=== PATIENT | male | born 1985 | race Hispanic/Latino ===

== ENCOUNTER 2024-08-20 02:26 | Emergency (ER) | payer BC ==
[~2024-08-20] VITALS: Ht 180.3 cm; Wt 103.1 kg
--- NOTE | 2024-08-20 02:30 | ERN ---
ED Note History of Present Illness Stated Complaint: HEAD PRESSURE, ELEVATED BLOOD GLUCOSE,BLURRY Chief Complaint: Multiple Complaints Time Seen by MD: 02:30 Dictation: Middle-aged 38-year-old male comes in today. Says last few days that is some headache. And also some elevated sugar. I said this then made sure has vision blurry. But no loss of vision no current and pulling. 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 then has not taken medications for diabetes Allergies: Coded Allergies: No Known Drug Allergies (Unverified Allergy, Unknown, 08/20/24) Review of System Dictation Constitutional: Negative for fever,chills, and weight loss Eyes: Negative for injury, pain,redness, and discharge ENT: Negative for injury,pain or swelling Cardiovascular: Negative for chest pain, palpitations, and edema Respiratory: Negative for shortness of breath, cough, and wheezing, Abdomen/GI: Negative for abdominal pain, nausea, vomiting, diarrhea, and constipation Back: Negative for injury and pain : Negative for injury, bleeding and discharge MS/Extremity: Negative for injury and deformity Skin: Negative for rash, and discoloration Neuro: Headache Psych: Negative for suicide ideation, homicidal ideation, and hallucinations Initial Vital Sign VS Vital Signs Date Time Temp Pulse Resp B/P (MAP) Pulse Ox O2 Delivery O2 Flow Rate FiO2 08/20/24 02:27 97.9 75 18 120/68 96 Room Air 0 08/20/24 04:20 21 Physical Exam Dictation General: awake, alert, NAD Head/Face: Normocephalic, atraumatic Eyes: PERRL, EOMI, vision at baseline ENT: oral cavity clear, TMs clear, no signs of infection Neck: Trachea midline, supple, no nuchal rigidity Cardiovascular: RRR, normal S1/S2, No MRGs, no JVD Respiratory: CTAB, no respiratory distress, No rales or wheezes Abdomen: Soft, non-tender, non-distended, normal bowel sounds, no guarding or rebound. Skin: Warm, dry, normal turgor, no rash MS/Extremity: Pulses equal, no cyanosis, neurovascular intact, FROM Neuro: COAx4, GCS 15, strength 5/5, CN 2-12 intact, normal cerebellar exam, normal gait, Psych: Normal behavior, mood, and affect normal No acute distress nontoxic appearing he is able to ambulate and walk into the room without difficulties NIH of 0 cerebellar testing within normal limits no gait or balance disorder Results (Laboratory/Radiology) Laboratory/Radiology Laboratory Tests Test 08/20/24 04:13 08/20/24 04:16 08/20/24 04:18 Whole Blood Glucose 67 MG/DL (70-110) L 90 MG/DL (70-110) White Blood Count 8.3 K/uL (4.8-10.8) Red Blood Count 4.57 MIL/uL (4.50-6.20) Hemoglobin 13.9 g/dL (14.0-18.0) L Hematocrit 41.6 % (42-54) L Mean Corpuscular Volume 91.0 fL (79-99) Mean Corpuscular Hemoglobin 30.4 pg (27.0-33.0) Mean Corpuscular Hemoglobin Concent 33.4 g/dL (32.0-36.0) Red Cell Distribution Width 12.8 % (11.0-15.5) Platelet Count 221 K/uL (130-400) Mean Platelet Volume 9.9 fL (7.5-10.5) Immature Granulocyte % (Auto) 0.1 % (0-1) Neutrophils (%) (Auto) 41.2 % (40.0-77.0) Lymphocytes (%) (Auto) 43.2 % (21.0-51.0) Monocytes (%) (Auto) 10.4 % (3.0-13.0) Eosinophils (%) (Auto) 4.7 % (0.0-8.0) Basophils (%) (Auto) 0.4 % (0.0-5.0) Neutrophils # (Auto) 3.4 K/uL (1.8-7.7) Lymphocytes # (Auto) 3.6 K/uL (1.0-4.8) Monocytes # (Auto) 0.9 K/uL (0.1-1.0) Eosinophils # (Auto) 0.39 K/uL (0.00-0.70) Basophils # (Auto) 0.03 K/uL (0.00-0.20) Absolute Immature Granulocyte (auto 0.01 K/uL (0-1) Nucleated Red Blood Cells 0.0 % (0.0-0.19) Sodium Level 139 mmol/L (136-145) Potassium Level 4.4 mmol/L (3.5-5.1) Chloride Level 102 mmol/L (101-111) Carbon Dioxide Level 34 mmol/L (21-32) H Blood Urea Nitrogen 13 mg/dL (7-18) Creatinine 0.9 mg/dL (0.5-1.3) Glomerular Filtration Rate Calc 113 mL/min (>90) Random Glucose 76 mg/dL (70-105) Total Calcium 8.8 mg/dL (8.5-10.1) Total Bilirubin 0.4 mg/dL (0.2-1.0) Aspartate Amino Transf (AST/SGOT) 38 U/L (10-37) H Alanine Aminotransferase (ALT/SGPT) 64 U/L (12-78) Alkaline Phosphatase 62 U/L (50-136) Total Protein 8.0 g/dL (6.0-8.3) Albumin 3.7 g/dL (3.5-5.0) ED Course ED Course Orders Procedure Category Date Status Time Blood Sugars Achs CPOE 08/20/24 Transmitted 02:38 Lipid Panel LAB 08/21/24 Verified 04:00 Blood Sugars Achs CPOE 08/20/24 Transmitted 02:38 Insulin Humulin 70/30 PHA 08/20/24 Complete 3 Ml (Humulin 70-3 16:30 0.9%Nacl 1000ml (Ns PHA 08/20/24 Complete 1000ml) 03:00 Comprehensive LAB 08/20/24 Complete Metabolic Panel 02:38 Chest 1vw RAD 08/20/24 Taken 02:41 Ondansetron 4mg Inj PHA 08/20/24 Complete (Zofran 4mg Inj) 03:00 Cbc With Differential LAB 08/20/24 Complete 02:38 Current Medications Medications (Trade) Dose Ordered Sig/Jasiel Route PRN Reason Start Time Stop Time Status Last Admin Dose Admin Insulin Human Isoph/Insulin Regular (humuLIN 70-30 VIAL) 10 unit ACDINNER SQ 08/20/24 16:30 08/20/24 04:17 DC Ondansetron HCl (zoFRAN 4MG INJ) 4 mg ONCE ONCE IVP 08/20/24 03:00 08/20/24 03:01 DC Sodium Chloride 1,000 ml @ 0 mls/hr ONCE ONCE IV 08/20/24 03:00 08/20/24 04:17 DC Vital Signs Date Time Temp Pulse Resp B/P (MAP) Pulse Ox O2 Delivery O2 Flow Rate FiO2 08/20/24 04:20 97.5 74 18 124/76 100 Room Air* 0 21 08/20/24 02:27 97.9 75 18 120/68 96 Room Air 0 Medical Decision Making MDM Likely headache and dehydration from elevation sugar. We will make sure he is not DKA. No need to scan the head. No neurological deficits she has normal sugar and normal labs test. Stable for outpatient management migraine DX & DISP Disposition: Discharge Departure Impression: Primary Impression: Migraine Condition: Stable SHREYAS MEJIA MD Aug 20, 2024 02:30
[2024-08-20] MEDS ORDERED: 0.9%NACL 1000ML 1,000 ML IV ONE (03:00)
--- NOTE | 2024-08-20 04:07 | NUR ---
ASSUMED PT CARE AT THIS TIME
[2024-08-20] MEDS: ondanSETRON 4MG INJ IVP ONE (04:26)
[2024-08-20 04:28] LABS: BASOPHILS # (AUTO) 0.03 K/uL (0.00-0.20); BASOPHILS % (AUTO) 0.4 % (0.0-5.0); EOSINOPHILS # (AUTO) 0.39 K/uL (0.00-0.70); EOSINOPHILS % (AUTO) 4.7 % (0.0-8.0); HEMATOCRIT 41.6 % (42-54); IMMATURE GRANULOCYTE ABSOLUTE 0.01 K/uL (0-1); LYMPHOCYTES # (AUTO) 3.6 K/uL (1.0-4.8); LYMPHOCYTES % (AUTO) 43.2 % (21.0-51.0); MEAN CORPUSCULAR HEMOGLOBIN 30.4 pg (27.0-33.0); MEAN CORPUSCULAR HGB CONC 33.4 g/dL (32.0-36.0); MONOCYTES # (AUTO) 0.9 K/uL (0.1-1.0); MONOCYTES % (AUTO) 10.4 % (3.0-13.0); NEUTROPHILS # (AUTO) 3.4 K/uL (1.8-7.7); NEUTROPHILS % (AUTO) 41.2 % (40.0-77.0); PLATELET COUNT (AUTO) 221 K/uL (130-400); RED BLOOD CELL COUNT(AUTO) 4.57 MIL/uL (4.50-6.20); RED CELL DISTRIBUTION WIDTH 12.8 % (11.0-15.5); WHITE BLOOD COUNT (AUTO) 8.3 K/uL (4.8-10.8)
[2024-08-20 04:47] LABS: CREATININE 0.9 mg/dL (0.5-1.3); POTASSIUM 4.4 mmol/L (3.5-5.1)
[2024-08-20 04:51] LABS: ALBUMIN 3.7 g/dL (3.5-5.0); BILIRUBIN,TOTAL 0.4 mg/dL (0.2-1.0)
[2024-08-20 05:33] VITALS: BP 126/62; PULSE 72; RESP 18; TEMP 97.9; O2SAT 97
--- NOTE | 2024-08-20 08:41 | HMCIMG ---
CHEST 1VW REASON: cp COMPARISON: None. FINDINGS: Single view of the chest was obtained. Lungs are clear. Heart size is normal. There is no pulmonary vascular congestion. Mediastinum and bony thorax appear unremarkable. IMPRESSION: 1. Normal single view chest x-ray.
== END 2024-08-20 05:34 | disposition home or self-care (01) ==
LOC: EDH 02:26
DX: G43.909 Migraine, unspecified, not intractable, without status migrainosus (principal)
CPT/HCPCS: 36415; 71045; 80053; 82948; 85025; 99283